=== PATIENT | male | born 1940 | race African-American/Black ===

== ENCOUNTER 2017-10-19 13:03 | Outpatient (CLI) | payer MEDICARE, MEDICAID ==
[~2017-10-19 13:03] MED LIST: DIOVAN80 MG ORAL; LEVAQUIN500 MG ORAL; LIPITOR20 MG ORAL; METRONIDAZOLE500 MG ORAL
--- NOTE | 2017-10-19 15:40 | Diagnostic Imaging Report ---
Indications: Pain Technique: Two views of the thoracic spine Comparison: None Findings: There is minimal scoliotic deformity, although this could be an artifact of positioning. Bony alignment is normal otherwise particularly heights and disc spaces are preserved. The bones are osteoporotic. 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 No gross paraspinous mass Impression: No acute process. Osteoporotic change
== END 2017-10-19 15:03 | disposition home or self-care (01) ==
LOC: RAD 13:03
DX: M25.552 Pain in left hip (principal); M54.9 Dorsalgia, unspecified; M81.0 Age-related osteoporosis without current pathological fracture
CPT/HCPCS: 72070; 72110